=== PATIENT | female | born 1975 ===

== ENCOUNTER 2021-07-20 08:15 | Inpatient (IN) | payer OTHER ==
[~2021-07-20] VITALS: Ht 165.1 cm; Wt 86.2 kg
== END 2021-07-30 12:21 | disposition home or self-care (01) | DRG 743 ==
LOC: SURH 07-27 08:15 → O/R 07-27 10:15 → SURH 07-27 14:30 → OB/GYN 07-27 18:21
PROVIDERS: ADMIT Obstetrics & Gynecology; ATTEND Obstetrics & Gynecology
PROC: 0UT70ZZ Resection of Bilateral Fallopian Tubes, Open Approach (ICD-10-PCS; 2021-07-27)
PROC: 0UT90ZZ Resection of Uterus, Open Approach (ICD-10-PCS; principal; 2021-07-27 14:30)
DX: N72 Inflammatory disease of cervix uteri (principal); Z20.822 Contact with and (suspected) exposure to COVID-19